=== PATIENT | female | born 1985 | race Hispanic/Latino ===

== ENCOUNTER 2018-12-07 08:29 | Emergency (ER) | payer MEDICAID ==
[2018-12-07 09:06] VITALS: BP 103/68
--- NOTE | 2018-12-07 09:36 | Emergency Department Report ---
ED General Adult HPI - General Chief complaint: Urogenital-Female Stated complaint: ABD PAIN/UTI/YEAST INFECTION Time Seen by Provider: 12/07/18 09:13 Source: patient Mode of arrival: Ambulatory Limitations: No Limitations - History of Present Illness Initial comments: Patient presents to the emergency department chief complaint of burning with urination and irritation for the last couple of days. Patient denies any edison abdominal pain or vaginal bleeding. -: Gradual Severity scale (0 -10): 2 Quality: burning Consistency: constant Improves with: none Worsens with: none Associated Symptoms: denies other symptoms Treatments Prior to Arrival: none - Related Data Previous Rx's Medication Instructions Recorded Last Taken Type Fluconazole [Diflucan ORAL SOLN] 100 mg PO QDAY #2 oral.liqd 12/07/18 Unknown Rx Sulfamethoxazole/Trimethoprim 1 each PO BID #14 tablet 12/07/18 Unknown Rx [Bactrim DS TAB] Allergies Allergy/AdvReac Type Severity Reaction Status Date / Time No Known Allergies Allergy Unverified 12/07/18 08:35 ED Review of Systems ROS: Stated complaint: ABD PAIN/UTI/YEAST INFECTION Other details as noted in HPI Comment: All other systems reviewed and negative Constitutional: denies: chills, fever Eyes: denies: eye pain, eye discharge, vision change ENT: denies: ear pain, throat pain Respiratory: denies: cough, shortness of breath, wheezing Cardiovascular: denies: chest pain, palpitations Endocrine: no symptoms reported Gastrointestinal: denies: abdominal pain, nausea, diarrhea Genitourinary: dysuria. denies: urgency, discharge Musculoskeletal: denies: back pain, joint swelling, arthralgia Skin: denies: rash, lesions Neurological: denies: headache, weakness, paresthesias Psychiatric: denies: anxiety, depression Hematological/Lymphatic: denies: easy bleeding, easy bruising ED Past Medical Hx - Past Medical History Previous Medical History?: No - Surgical History Past Surgical History?: No - Social History Smoking Status: Never Smoker Substance Use Type: None - Medications Home Medications: Home Medications Medication Instructions Recorded Confirmed Last Taken Type Fluconazole [Diflucan ORAL SOLN] 100 mg PO QDAY #2 oral.liqd 12/07/18 Unknown Rx Sulfamethoxazole/Trimethoprim 1 each PO BID #14 tablet 12/07/18 Unknown Rx [Bactrim DS TAB] ED Physical Exam - General Limitations: No Limitations General appearance: alert, in no apparent distress - Head Head exam: Present: atraumatic, normocephalic - Eye Eye exam: Present: normal appearance, PERRL - ENT ENT exam: Present: mucous membranes moist - Neck Neck exam: Present: normal inspection - Respiratory Respiratory exam: Present: normal lung sounds bilaterally. Absent: respiratory distress, wheezes, rales - Cardiovascular Cardiovascular Exam: Present: regular rate, normal rhythm. Absent: systolic murmur, diastolic murmur, rubs, gallop - GI/Abdominal GI/Abdominal exam: Present: soft, normal bowel sounds. Absent: distended, tenderness - Extremities Exam Extremities exam: Present: normal inspection - Back Exam Back exam: Present: normal inspection - Neurological Exam Neurological exam: Present: alert, oriented X3, CN II-XII intact. Absent: motor sensory deficit - Psychiatric Psychiatric exam: Present: normal affect, normal mood - Skin Skin exam: Present: warm, dry, intact, normal color. Absent: rash ED Course Vital Signs 12/07/18 08:56 Temperature 98.7 F Pulse Rate 82 Respiratory 18 Rate Blood Pressure 103/68 O2 Sat by Pulse 97 Oximetry ED Medical Decision Making - Lab Data Lab Results 12/07/18 Range/Units 10:23 Urine Color Yellow (Yellow) Urine Turbidity Slightly-cloudy (Clear) Urine pH 5.0 (5.0-7.0) Ur Specific [place] 1.028 (1.003-1.030) Urine Protein <15 mg/dl (Negative) mg/dL Urine Glucose (UA) Neg (Negative) mg/dL Urine Ketones Neg (Negative) mg/dL Urine Blood Sm (Negative) Urine Nitrite Neg (Negative) Urine Bilirubin Neg (Negative) Urine Urobilinogen < 2.0 (<2.0) mg/dL Ur Leukocyte Esterase Mod (Negative) Urine WBC (Auto) 80.0 H (0.0-6.0) /HPF Urine RBC (Auto) 8.0 (0.0-6.0) /HPF U Epithel Cells (Auto) 4.0 (0-13.0) /HPF Urine Bacteria (Auto) 1+ (Negative) /HPF Urine Mucus 3+ /HPF Urine HCG, Qual Negative (Negative) - Medical Decision Making discussed results with patient Critical care attestation.: If time is entered above; I have spent that time in minutes in the direct care of this critically ill patient, excluding procedure time. ED Disposition Clinical Impression: UTI (urinary tract infection) Disposition: - TO HOME OR SELFCARE Is pt being admited?: No Does the pt Need Aspirin: No Condition: Stable Instructions: Urinary Tract Infection in Women (ED) Additional Instructions: return if worse Prescriptions: Sulfamethoxazole/Trimethoprim [Bactrim DS TAB] 1 each PO BID #14 tablet Fluconazole [Diflucan ORAL SOLN] 100 mg PO QDAY #2 oral.liqd Referrals: PRIMARY CARE, [Primary Care Provider] - 3-5 Days [facility] [Provider Group] - 3-5 Days [facility] [Provider Group] - 3-5 Days Time of Disposition: 11:07
[2018-12-07 10:53] LABS: Bacteria,Urine 1+ /HPF (Negative); Bilirubin,Urine NEG (Negative); Blood,Urine SM (Negative); Color,Urine Yellow (Yellow); Mucus,Urine 3+ /HPF; Protein,Urine <15 mg/dL mg/dL (Negative); Urobilinogen,Urine < 2.0 mg/dL (<2.0)
[2018-12-07 10:54] LABS: HCG Qualitative,Urine Negative (Negative)
== END 2018-12-07 11:14 | disposition home or self-care (01) ==
LOC: ED 08:29
DX: N39.0 Urinary tract infection, site not specified (principal); Z79.899 Other long term (current) drug therapy; Z88.2 Allergy status to sulfonamides
CPT/HCPCS: 81001; 81025; 87076; 87086; 87186; 99283

== ENCOUNTER 2018-12-08 07:59 | Emergency (ER) | payer MEDICAID ==
[2018-12-08 08:08] VITALS: BP 106/70
--- NOTE | 2018-12-08 08:36 | Emergency Department Report ---
HPI - General Chief Complaint: Allergic Reaction Time Seen by Provider: 12/08/18 08:17 - HPI HPI: 33-year-old female presents to the emergency department with a complaint of generalized itching after starting Bactrim DS and Diflucan yester day. The patient was seen here and diagnosed with a urinary tract infection and a yeast infection. She denies any swelling of the lips, swelling of the tongue, difficulty swallowing shortness of breath, chest pain or any other angioedema or anaphylaxis type symptoms. Her only complaint is itching. She has otherwise not taken anything else for his symptoms prior to arrival. She has a primary c are physician. ED Past Medical Hx - Past Medical History Previous Medical History?: No - Surgical History Past Surgical History?: No - Social History Smoking Status: Never Smoker Substance Use Type: None - Medications Home Medications: Home Medications Medication Instructions Recorded Confirmed Last Taken Type Fluconazole [Diflucan ORAL SOLN] 100 mg PO QDAY #2 oral.liqd 12/07/18 Unknown Rx Nitrofurantoin [place]/M-Cryst 100 mg PO Q12HR #14 capsule 12/08/18 Unknown Rx [Macrobid CAP] ED Review of Systems ROS: Stated complaint: REACTION TO MEDS Other details as noted in HPI Comment: All other systems reviewed and negative Constitutional: denies: chills, fever ENT: denies: throat pain Respiratory: denies: cough, shortness of breath Cardiovascular: denies: chest pain, edema Gastrointestinal: denies: nausea, vomiting Genitourinary: dysuria. denies: discharge Skin: pruritus. denies: rash, lesions Physical Exam - Physical Exam Vital Signs: Vital Signs 12/08/18 08:03 Temperature 98.5 F Pulse Rate 109 H Respiratory 16 Rate Blood Pressure 106/70 O2 Sat by Pulse 98 Oximetry Physical Exam: GENERAL: The patient is well-developed well-nourished. HENT: Normocephalic. Atraumatic. Patient has moist mucous membranes. EYES: Extraocular motions are intact. CHEST/LUNGS: Clear to auscultation. There is no respiratory distress noted. HEART/CARDIOVASCULAR: Regular. There is no tachycardia. There is no murmur. ABDOMEN: There is no abdominal distention. SKIN: Skin is warm and dry. NEURO: The patient is awake, alert, and oriented. The patient is cooperative. Normal speech. MUSCULOSKELETAL: Full range of motion. ED Course Vital Signs 12/08/18 08:03 Temperature 98.5 F Pulse Rate 109 H Respiratory 16 Rate Blood Pressure 106/70 O2 Sat by Pulse 98 Oximetry - Reevaluation(s) Reevaluation #1: The patient presents wearing a Burqa which I believe is secondary to her protestant practices. Her only complaint is itching and denies any rash, hives or any other symptoms concerning for angioedema or anaphylaxis. For these reasons, the patient has deferred to be placed in a gown for a full body examination and given that the only symptom is itching, I will respect her wishes. 12/08/18 08:34 ED Medical Decision Making - Medical Decision Making This patient presents with a complaint of severe itching after starting Bactrim DS and Diflucan for a urinary tract infection and alleged East infection. She denies any urticarial lesions, rash or skin color changes. The patient is wearing a Burqa. I went back and did look at the urinalysis which does show a urinary tract infection. We will discontinue the sulfa and start on Macrobid. She's been instructed to follow up with primary care physician and return to the ER with any worsening of her symptoms or any acute distress. Critical Care Time: No Critical care attestation.: If time is entered above; I have spent that time in minutes in the direct care of this critically ill patient, excluding procedure time. ED Disposition Clinical Impression: Itching, Adverse reaction to antibiotic Disposition: DC-01 TO HOME OR SELFCARE Is pt being admited?: No Condition: Stable Instructions: Nitrofurantoin Combination (By mouth) Additional Instructions: Please stop taking the Bactrim. I am starting you on an antibiotic called Macrobid/nitrofurantoin. This medication is taken twice daily for 1 week and should also treat your urinary tract infection. Please follow-up with your primary care physician and return to the emergency department with any worsening of your symptoms, concerns, or with any acute distress. You can take [id number] Benadryl every 6-8 hours as needed for itching but this medication can be sedating so take caution. Prescriptions: Nitrofurantoin [place]/M-Cryst [Macrobid CAP] 100 mg PO Q12HR #14 capsule Referrals: PRIMARY CARE, [Primary Care Provider] - 2-3 Days Time of Disposition: :39
[2018-12-08] MEDS ORDERED: BENADRYL PO ONE (08:39)
[2018-12-08] MEDS ORDERED: DECADRON PO ONE (08:39)
== END 2018-12-08 08:49 | disposition home or self-care (01) ==
LOC: ED 07:59
DX: L29.9 Pruritus, unspecified (principal); T36.95XA Adverse effect of unspecified systemic antibiotic, initial encounter; Z79.899 Other long term (current) drug therapy; Y92.89 Other specified places as the place of occurrence of the external cause
CPT/HCPCS: 99282; J8540

== ENCOUNTER 2018-12-25 19:46 | Emergency (ER) | payer OTHER, MEDICAID ==
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
[2018-12-25] MEDS ORDERED: FLEXERIL PO ONE (22:09)
[2018-12-25] MEDS ORDERED: IBUPROFEN PO ONE (22:09)
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
[2018-12-26 02:00] VITALS: BP 110/75
== END 2018-12-25 23:20 | disposition home or self-care (01) ==
LOC: ED 19:46
DX: R07.89 Other chest pain (principal); M25.531 Pain in right wrist; Z88.2 Allergy status to sulfonamides; V89.2XXA Person injured in unspecified motor-vehicle accident, traffic, initial encounter; Y93.89 Activity, other specified; Y92.410 Unspecified street and highway as the place of occurrence of the external cause; Y99.8 Other external cause status
CPT/HCPCS: 71046; 93005; 93010